=== PATIENT | female | born 1965 | race Two or more races ===

== ENCOUNTER → 2022-07-19 | Outpatient (REF) | payer BC, OTHER | LOC: M LAB REF 12:02 | PROVIDERS: ATTEND Physician Assistant Medical | DX: M25.50 Pain in unspecified joint (principal); R53.83 Other fatigue ==

== ENCOUNTER → 2022-07-20 | Outpatient (CLI) | payer BC, OTHER | LOC: M WHC 06:36 | DX: Z12.31 Encounter for screening mammogram for malignant neoplasm of breast (principal) ==

== ENCOUNTER → 2022-08-10 | Outpatient (CLI) | payer BC, OTHER | LOC: M SOG 08:29 | PROVIDERS: ATTEND Orthopaedic Surgery Hand Surgery | DX: M19.042 Primary osteoarthritis, left hand (principal) ==

== ENCOUNTER → 2022-08-30 | Outpatient (REF) | payer OTHER | LOC: M SFHCWAGY 10:35 | PROVIDERS: ATTEND Nurse Practitioner Family | DX: Z12.4 Encounter for screening for malignant neoplasm of cervix (principal) ==

== ENCOUNTER → 2022-09-01 | Outpatient (CLI) | payer BC, OTHER | LOC: M PLALAB 07:54 | PROVIDERS: ATTEND Nurse Practitioner Family | DX: Z80.3 Family history of malignant neoplasm of breast (principal) ==

== ENCOUNTER → 2023-05-16 | Outpatient (CLI) | payer BC, OTHER ==
[~2023-05-16] MED LIST: PROHANCE 279.3MG/ML 15ML VIAL ONE
== END ==
LOC: M PLAIMG 04-28 08:53
PROVIDERS: ATTEND Nurse Practitioner Family
DX: Z12.39 Encounter for other screening for malignant neoplasm of breast (principal); Z80.1 Family history of malignant neoplasm of trachea, bronchus and lung; Z80.42 Family history of malignant neoplasm of prostate; Z80.8 Family history of malignant neoplasm of other organs or systems
CPT/HCPCS: A9576; C8908

== ENCOUNTER → 2023-11-16 | Outpatient (CLI) | payer BC | LOC: M WHC 15:27 | PROVIDERS: ATTEND Obstetrics & Gynecology | DX: Z12.31 Encounter for screening mammogram for malignant neoplasm of breast (principal); R92.323 Mammographic fibroglandular density, bilateral breasts ==

== ENCOUNTER → 2023-12-15 | Outpatient (CLI) | payer BC | LOC: M RAD 10:24 | PROVIDERS: ATTEND Obstetrics & Gynecology | DX: N95.1 Menopausal and female climacteric states (principal); N85.2 Hypertrophy of uterus; D25.9 Leiomyoma of uterus, unspecified; R93.89 Abnormal findings on diagnostic imaging of other specified body structures ==

== ENCOUNTER → 2024-08-08 | Outpatient (REF) | payer OTHER ==
[2024-08-08 15:06] LABS: PROGESTERONE 2.36 NG/ML
== END ==
LOC: M LAB REF 13:05
PROVIDERS: ATTEND Physician Assistant Medical
DX: N95.1 Menopausal and female climacteric states (principal)

== ENCOUNTER → 2024-10-25 | Outpatient (CLI) | payer BC | LOC: M WHC 07:30 | PROVIDERS: ATTEND Physician Assistant Medical | DX: Z12.31 Encounter for screening mammogram for malignant neoplasm of breast (principal); R92.323 Mammographic fibroglandular density, bilateral breasts ==

== ENCOUNTER → 2024-10-25 | Outpatient (CLI) | payer BC | LOC: M WHC 07:29 | PROVIDERS: ATTEND Obstetrics & Gynecology | DX: N92.6 Irregular menstruation, unspecified (principal); D25.1 Intramural leiomyoma of uterus ==